=== PATIENT | female | born 1990 | race Caucasian/White ===

== ENCOUNTER → 2018-01-13 13:48 | Outpatient (CLI) | payer OTHER, SELFPAY ==
[2018-01-13 14:45] LABS: Add Manual Diff / Slide Review NO; Basophils Percent Auto 0.5 % (0-2); Eosinophils Percent Auto 1.5 % (2-4); Hematocrit 35.8 % (36-46); Hemoglobin 12.2 g/dL (12.0-16.0); Lymphocytes Percent Auto 21.2 % (25-40); Mean Corpuscular HGB Conc 34.2 % (30-36); Mean Corpuscular Hemoglobin 31.6 PG (26-34); Mean Corpuscular Volume 92.3 fL (80-100); Monocytes Percent Auto 7.4 % (3-14); Neutrophils Absolute Auto 7400 /uL (3000-5900); Neutrophils Percent Auto 69.4 % (50-75); Platelet Count 374 X10^3/uL (150-400); Red Blood Cell Count 3.87 X10^6/uL (4.0-5.2); Red Cell Distribution Width 12.7 % (11.6-14.8); White Blood Cell Count 10.7 X10^3/uL (4.5-11.0)
[2018-01-13 18:56] LABS: Hepatitis B Surface Antigen NEGATIVE s/c (NEGATIVE); Rubella Antibody IgG 45.6 IU/mL (>15)
[2018-01-13 19:05] LABS: Appearance Urine UA SL CLOUDY; Bilirubin Urine UA NEGATIVE (NEGATIVE); Color Urine UA YELLOW; Glucose Urine UA NEGATIVE (Normal); Ketones Urine UA TRACE (NEGATIVE); Leukocyte Esterase Urine UA NEGATIVE (NEGATIVE); Nitrite Urine UA NEGATIVE (Negative); Occult Blood Urine UA NEGATIVE (Negative); Protein Urine UA NEGATIVE (Negative); Urobilinogen Urine UA 0.2 E.U./dL (0.2)
[2018-01-13 19:11] LABS: HIV 1 and 2 Antibody NEGATIVE (NEGATIVE); Hep C Virus Ab w/Reflex Quant NEGATIVE s/c (NEGATIVE)
[2018-01-15 14:00] LABS: HSV 2 IGG AB < 0.90 index (< 0.90)
[2018-01-15 15:41] LABS: RPR Screen Nonreactive (Nonreactive)
== END ==
PROVIDERS: Visit Provider Family Medicine
DX: Z34.01 Encounter for supervision of normal first pregnancy, first trimester (principal); Z3A.01 Less than 8 weeks gestation of pregnancy
CPT/HCPCS: 36415; 80055; 81003; 86695; 86696; 86703; 86787; 86803; 86850; 86900; 86901; 87086

== ENCOUNTER → 2018-02-10 09:14 | Outpatient (CLI) | payer OTHER, SELFPAY ==
[2018-02-16 12:46] LABS: AFP, Serum 20.9 ng/mL; Calc Gestational Age 16.6; Cigarette Smoker N; Donated Egg N; Donor Egg Age NOT GIVEN; Estriol, Free 0.81 ng/mL; Inhibin A, Dimeric 404 pg/mL; Maternal Ethnicity CAUCASIAN; Maternal Weight 166 lbs; Number of Fetuses 1; Previous Pregnancy Down Syndro N; hCG, MoM 0.83
== END ==
PROVIDERS: Visit Provider Family Medicine
DX: Z3A.16 16 weeks gestation of pregnancy (principal)
CPT/HCPCS: 36415; 82105; 82677; 84702; 86336

== ENCOUNTER → 2018-03-13 08:10 | Outpatient (CLI) | payer OTHER, SELFPAY ==
--- NOTE | 2018-03-13 08:13 | DI.US.S_ITS ---
PROCEDURE: US OB >= 14 WEEKS FETUS INDICATIONS: anatomy scan OUTSIDE/PRIOR DATING DATA: Last menstrual period (LMP): Unknown.. LMP-based estimated date of delivery (ELIAS): N./A.. First dating scan (date and location): 01/13/18 Estimated date of delivery (ELIAS) from first dating scan: 07/25/18. TECHNIQUE: Real-time scanning was performed of the fetus, with image documentation and biometric measurements. Endovaginal scanning: No COMPARISON: [employer] [facility], , OB <= 14 WEEKS FETUS, 01/13/2018, 13:20. FINDINGS: General: A single living intrauterine gestation is present. Presentation: Vertex. Placenta: Placental position is anterior, without previa. Amniotic fluid index: 15.7 cm, normal range is 5-24 cm. heart rate: 145 beats per minute. Maternal cervical canal: 4.5 cm long. Normal lower limit is 2.5 cm. biometrics: Biparietal diameter: 21 weeks 0 days Head circumference: 20 weeks 4 days Abdominal circumference: 21 weeks 1 day Femur length: 20 weeks 6 days Estimated gestational age from initial scan: 20 weeks 6 days Composite gestational age from present scan: 20 weeks 6 days Estimated weight and percentile: 39 g, 50th percentile Measurement variability for biometric dating: +/- 7 days from 14 weeks to 15 weeks 6 days gestation, +/- 10 days from 16 weeks to 21 weeks 6 days gestation, +/- 2 weeks from 22 weeks to 27 weeks 6 days gestation, +/- 3 weeks for 28 weeks gestation or later. weight reference: 4500 g or EFW >90/95% is considered macrosomia or large for gestational age. EFW <10% is small for gestational age. EFW 5% or less is considered intra-uterine growth restriction. Anatomic survey: Neuro: Ventricles are non-dilated at less than 10 mm. Cisterna magna is normal at 3-11 mm. Cerebellum is normal in size and morphology. Nuchal skin fold: Normal at less than 6 mm between 14-21 weeks gestational age. Face: Nose and lips, facial profile are normal. Spine: No evidence for spina bifida. Heart: 4-chambered heart is present, with normal ventricular outflow tracts. Diaphragm: Diaphragm is intact. Stomach: Left-sided stomach is present. Kidneys: No hydronephrosis. Normal is less than 5 mm in 2nd trimester, less than 7 mm in 3rd trimester. Cord: 3-vessel cord has orthotopic insertion. Bladder: Normal in size. Extremities: All 4 extremities identified. IMPRESSION: 1. Single living IUP redemonstrated and interval growth is normal. 2. Normal anatomic survey. Dictated by: Murali ROBBINS Interpreted: Nasim Chavez MD on 03/13/2018 at 10:36 Approved by: Nasim Chavez M.D. on 03/13/2018 at 11:08
== END ==
PROVIDERS: PCP Family Medicine; Visit Provider Family Medicine
DX: Z36.89 Encounter for other specified antenatal screening (principal); Z3A.20 20 weeks gestation of pregnancy
CPT/HCPCS: 76811

== ENCOUNTER → 2018-05-08 12:25 | Outpatient (CLI) | payer OTHER, SELFPAY ==
[2018-05-08 12:40] LABS: Add Manual Diff / Slide Review NO; Basophils Absolute Auto 0 /uL (0-100); Basophils Percent Auto 0.4 % (0-2); Eosinophils Absolute Auto 200 /uL (0-450); Eosinophils Percent Auto 1.7 % (2-4); Hematocrit 33.7 % (36-46); Hemoglobin 11.9 g/dL (12.0-16.0); Lymphocytes Absolute Auto 2000 /uL (1100-4500); Lymphocytes Percent Auto 17.3 % (25-40); Mean Corpuscular HGB Conc 35.2 % (30-36); Mean Corpuscular Hemoglobin 32.9 PG (26-34); Mean Corpuscular Volume 93.4 fL (80-100); Monocytes Absolute Auto 1000 /uL (0-900); Monocytes Percent Auto 8.1 % (3-14); Neutrophils Absolute Auto 8600 /uL (1500-7000); Neutrophils Percent Auto 72.5 % (50-75); Platelet Count 358 X10^3/uL (150-400); Red Blood Cell Count 3.61 X10^6/uL (4.0-5.2); Red Cell Distribution Width 12.7 % (11.6-14.8); White Blood Cell Count 11.8 X10^3/uL (4.5-11.0)
== END ==
PROVIDERS: PCP Family Medicine; Visit Provider Family Medicine
DX: Z34.92 Encounter for supervision of normal pregnancy, unspecified, second trimester (principal)
CPT/HCPCS: 36415; 85025; 86850

== ENCOUNTER → 2018-06-26 09:35 | Outpatient (CLI) | payer OTHER, SELFPAY ==
[2018-06-27 15:15] LABS: Strep Grp B PCR NEG for Grp B Strep
== END ==
PROVIDERS: PCP Family Medicine; Visit Provider Family Medicine
DX: Z34.03 Encounter for supervision of normal first pregnancy, third trimester (principal)
CPT/HCPCS: 87653

== ENCOUNTER 2018-07-17 08:50 | Outpatient (CLI) | payer OTHER, SELFPAY ==
--- NOTE | 2018-07-17 09:49 | P.TNLD_ITS ---
Visit Information Visit Information Date of evaluation: 07/17/18 Primary OB Provider: Claudia William Reason for Evaluation: Yes non-stress test non-stress test reason: other (low HR in clinic) [facility] Social History Smoking Status: Current some day smoker Social History Smoking Status: Current some day smoker Evaluation Evaluation Baseline heart rate: 120 Variability: Moderate (11-25) monitor accelerations: Present Category of Tracing: I Diagnosis, Plan/Disposition Final Diagnosis (1) heart rate reactive: Current Visit: Yes Status: Acute Plan/Disposition Plan: Reactive NST with HR normalizing to the 120s OB Disposition: home
== END 2018-07-17 09:51 | disposition home or self-care (01) ==
LOC: LABOR 08:59 → OB 07-20 15:14
PROVIDERS: PCP Family Medicine; Visit Provider Family Medicine
DX: O99.89 Other specified diseases and conditions complicating pregnancy, childbirth and the puerperium (principal); R00.1 Bradycardia, unspecified; Z3A.38 38 weeks gestation of pregnancy
CPT/HCPCS: 59025; G0378; G0379

== ENCOUNTER 2018-07-29 17:40 | Observation (INO) | payer OTHER, SELFPAY ==
[2018-07-29] MEDS: miSOPROStol 25 MCG TABLET VAG (22:38)
--- NOTE | 2018-07-30 09:13 | P.TNLD_ITS ---
Visit Information Visit Information Date of evaluation: 07/30/18 Primary OB Provider: Claudia William Comments/Additional reasons for admission: Here for IOL, however no progress and needs to be sent home due to staffing. [facility] Social History Smoking Status: Current some day smoker Social History Smoking Status: Current some day smoker Evaluation Evaluation Baseline heart rate: 130 Variability: Moderate (11-25) monitor accelerations: Present monitor decelerations: Absent Uterine Contraction Intensity: Mild Category of Tracing: I Cervical dilation (cm): 1 Cervical effacement (%): 50 station: -4 Diagnosis, Plan/Disposition Final Diagnosis (1) Post-dates : Current Visit: No Status: Acute Plan/Disposition Plan: Pt here for IOL. No significant cervical change overnight after cytotec x1. Will need to return this evening for continued IOL due to staffing issues. Pt stable to d/c home. OB Disposition: home
== END 2018-07-30 09:09 | disposition home or self-care (01) ==
PROVIDERS: Admitting Provider Family Medicine; PCP Family Medicine; Visit Provider Family Medicine
DX: O61.9 Failed induction of labor, unspecified (principal); O48.0 Post-term pregnancy; Z3A.40 40 weeks gestation of pregnancy
CPT/HCPCS: 59025; 59050; 59200; G0378; G0379

== ENCOUNTER 2018-07-30 18:49 | Observation (INO) | payer OTHER, SELFPAY ==
[2018-07-30] MEDS: miSOPROStol 25 MCG TABLET VAG (20:00)
[2018-07-31 05:24] VITALS: BP 138/61
--- NOTE | 2018-07-31 08:38 | PM.OBHP.1 ---
OB HPI Date/Time Date of admission: 07/30/18 Date Patient Seen: 07/31/18 Time Patient Seen: 08:00 History of Present Condition Chief complaint: EVAL OF LABOR : 1 Para: 0 Estimated Date of Delivery: 07/24/18 Estimated Gestational Age (weeks): 41w0d Narrative: Vinny Hyman is a 27 year old at 41w0d who presented for IOL for post-dates. She denies any vaginal bleeding, LOF, or regular contractions. She has been feeling baby move regularly. Indications Indication for induction OB: post dates History of Present care: good care, initiated at week # (12) and pounds weight gain (32) Dating criteria: based on 1st trimester US only Ultrasounds: normal mid trimester US Obstetrical complications: none Medical complications: none Preadmission Labs Blood type: AB (-) negative -: Antibody screen: negative, GBS status: negative, HBsAG: negative, HIV: negative, HSV 1: positive, HSV 2: negative and RPR/VDLR: negative -: Rubella: immune and Varicella: immune HCT: 33.7 Quad screen: Normal Evaluation Evaluation Baseline heart rate: 120 Variability: Moderate (11-25) monitor accelerations: Present monitor decelerations: Absent Contraction Frequency (minutes): 4 Uterine Contraction Intensity: Mild Category of Tracing: I Cervical dilation (cm): 1 Cervical effacement (%): 50 station: -2 [facility] Social History Smoking Status: Current every day smoker Social History Smoking Status: Current every day smoker Meds Home Medications Medication Instructions Recorded Confirmed Type No Known Home Medications 07/29/18 07/31/18 History Allergies Allergy/AdvReac Type Severity Reaction Status Date / Time No Known Drug Allergies Allergy Verified 07/31/18 00:54 Exam Vital Signs (past 8 hours): - 07/31/18 05:24 Blood Pressure 138/61 Narrative Exam Narrative: Gen: NAD, laying comfortably in bed, appears well CV: RRR, no murmurs Resp: clear to auscultation bilaterally Abd: soft, nontender, gravid Ext: trace edema Assessment and Plan Assessment and Plan Assessment and Plan narrative: 27yo at 41w0d who presented for IOL for post-dates. IOL initially started 07/29 with cytotec x1, not continued due to staffing issues. Uncomplicated . Rh negative, GBS negative. - Expectant management, anticipate - S/P single dose of cytotec last night, not continued due to frequency of contractions although not being felt. Cervix more anterior this morning, but otherwise no significant change. Will use Cervidil for ongoing IOL. - GBS negative, no antibiotics indicated - Rh negative, cord blood after - FHT reassuring - Epidural for pain control if pt desires
[2018-07-31] MEDS: DINOPROSTONE VAG (CERVIDIL) 10 MG VAG (08:59)
[2018-07-31] MEDS: LACTATED RINGERS 1,000 ML 100 ML IV (09:00)
[2018-07-31 09:27] LABS: Add Manual Diff / Slide Review NO; Basophils Absolute Auto 100 /uL (0-100); Basophils Percent Auto 0.6 % (0-2); Eosinophils Absolute Auto 100 /uL (0-450); Eosinophils Percent Auto 0.9 % (2-4); Hematocrit 35.2 % (36-46); Hemoglobin 12.1 g/dL (12.0-16.0); Lymphocytes Absolute Auto 1900 /uL (1100-4500); Lymphocytes Percent Auto 16.7 % (25-40); Mean Corpuscular HGB Conc 34.5 % (30-36); Mean Corpuscular Hemoglobin 32.4 PG (26-34); Mean Corpuscular Volume 93.9 fL (80-100); Monocytes Absolute Auto 900 /uL (0-900); Monocytes Percent Auto 7.7 % (3-14); Neutrophils Absolute Auto 8200 /uL (1500-7000); Neutrophils Percent Auto 74.1 % (50-75); Platelet Count 298 X10^3/uL (150-400); Red Blood Cell Count 3.75 X10^6/uL (4.0-5.2); White Blood Cell Count 11.1 X10^3/uL (4.5-11.0)
== END 2018-07-31 21:51 | disposition home or self-care (01) ==
PROVIDERS: Admitting Provider Family Medicine; PCP Family Medicine; Visit Provider Family Medicine
DX: O61.9 Failed induction of labor, unspecified (principal); Z3A.40 40 weeks gestation of pregnancy
CPT/HCPCS: 36415; 59025; 59050; 59200; 85025; 86850; 86900; 86901; 96360; G0378; G0379

== ENCOUNTER 2018-08-01 20:38 | Inpatient (IN) | payer OTHER, SELFPAY ==
[2018-08-01 20:58] VITALS: BP 126/88
--- NOTE | 2018-08-01 21:05 | PM.OBHP.1 ---
OB HPI Date/Time Date of admission: 08/01/18 Date Patient Seen: 08/01/18 Time Patient Seen: 20:30 History of Present Condition Chief complaint: eval of labor : 1 Para: 0 Estimated Date of Delivery: 07/24/18 Estimated Gestational Age (weeks): 41w1d Narrative: Vinny Hyman is a 27 year old at 41w1d who presented for IOL for post-dates. Previously had received cytotec x1, then cytotec x1 followed by cervidil. On both occasions had to be discharged home due to staffing issues. The pt denies significant vaginal bleeding, LOF. She feels mild intermittent contractions. Feeling baby move regularly. Indications Indication for induction OB: post dates History of Present care: good care, initiated at week # (12) and pounds weight gain (32) Dating criteria: based on 1st trimester US only Ultrasounds: normal mid trimester US Obstetrical complications: none Medical complications: none Preadmission Labs Blood type: AB (-) negative -: Antibody screen: negative, GBS status: negative, HBsAG: negative, HIV: negative, HSV 1: positive, HSV 2: negative and RPR/VDLR: negative -: Rubella: immune and Varicella: immune HCT: 33.7 Quad screen: Normal Evaluation Evaluation Baseline heart rate: 150 Variability: Moderate (11-25) monitor accelerations: Present monitor decelerations: Absent Category of Tracing: I Cervical dilation (cm): 1 Cervical effacement (%): 50 station: -2 [facility] Social History Smoking Status: Former smoker Social History Smoking Status: Former smoker Meds Home Medications Medication Instructions Recorded Confirmed Type No Known Home Medications 07/29/18 07/31/18 History Allergies Allergy/AdvReac Type Severity Reaction Status Date / Time No Known Drug Allergies Allergy Verified 07/31/18 00:54 Exam Narrative Exam Narrative: Gen: NAD, laying comfortably in bed, appears well CV: RRR, no murmurs Resp: clear to auscultation bilaterally Abd: soft, nontender, gravid Ext: trace edema Assessment and Plan Assessment and Plan Assessment and Plan narrative: 27yo at 41w1d who presented for IOL for post-dates. IOL initially started 5/ with cytotec x1, then 5/2 with cytotec x1 followed by cervidil. No significant cervical change. Discharged home due to staffing issues. Uncomplicated . Rh negative, GBS negative. - Expectant management, anticipate - Rodrigez catheter placed for cervical dilation after informed consent. Inflated with 30cc of normal saline with gentle traction applied and rodrigez taped to leg. Will plan to remove after 12 hours or when rodrigez falls out. - GBS negative, no antibiotics indicated - Rh negative, cord blood after - FHT reassuring - Epidural for pain control if pt desires
[2018-08-02] MEDS: LACTATED RINGERS 1,000 ML 100 ML IV ×2 (06:17→16:45)
[2018-08-02] MEDS: OXYTOCIN PREMIX 30 UNIT/500 ML PLAST..BAG IV (06:17)
--- NOTE | 2018-08-02 08:37 | PM.OBPNLAB ---
Date/Time Date Patient Seen: 08/02/18 Time Patient Seen: 08:20 Pain Control Pain control: tolerating well Pelvic Exam Dilation (cm): 3 Effacement (%): 50 station: -2 Amniotic membrane status: Intact Contractions Contractions on admission: irregular Monitor mode: External Pitocin rate (mU/min): 6 Contraction pattern: Irregular Contraction phase: Resting Contraction intensity: Mild Status status: Category l Heart Rate Baseline: 120 Monitor Accelerations: Present Monitor Decelerations: Absent Monitor Variability: Moderate Assessment and Plan Assessment: induction ongoing Comments: 27yo at 41w1d who presented for IOL for post-dates. IOL initially started 5/ with cytotec x1, then 5/2 with cytotec x1 followed by cervidil. No significant cervical change. Discharged home due to staffing issues. Mckeon catheter overnight that fell out at approximately 2am. Cervix now 3cm, on pitocin. Uncomplicated . Rh negative, GBS negative. - Expectant management, anticipate - Continue pitocin, titrate as tolerated. Plan for AROM when head better applied to cervix. - GBS negative, no antibiotics indicated - Rh negative, cord blood after - FHT reassuring - Epidural for pain control if pt desires
--- NOTE | 2018-08-02 11:40 | PM.OBPNLAB ---
Date/Time Date Patient Seen: 08/02/18 Time Patient Seen: 11:30 Pain Control Pain control: tolerating well Pelvic Exam Dilation (cm): 4 Effacement (%): 60 station: -2 Amniotic membrane status: Ruptured Comments: After informed consent, AROM performed with production of clear fluid. Contractions Monitor mode: External Pitocin rate (mU/min): 12 Contraction pattern: Irregular Contraction phase: Resting Contraction intensity: Mild Status status: Category l Heart Rate Baseline: 150 Monitor Accelerations: Present Monitor Decelerations: Absent Monitor Variability: Moderate Assessment and Plan Assessment: induction ongoing Comments: 27yo at 41w1d who presented for IOL for post-dates. IOL initially started 5/ with cytotec x1, then 5/2 with cytotec x1 followed by cervidil. No significant cervical change. Discharged home due to staffing issues. Mckeon catheter overnight that fell out at approximately 2am. Cervix now 4cm, on pitocin. AROM performed with production of clear fluid. Uncomplicated . Rh negative, GBS negative. - Expectant management, anticipate - Continue pitocin, titrate as tolerated. Limit cervical exams due to AROM. - GBS negative, no antibiotics indicated - Rh negative, cord blood after - FHT reassuring - Epidural for pain control if pt desires
--- NOTE | 2018-08-02 19:48 | PM.OBPNLAB ---
Date/Time Date Patient Seen: 08/02/18 Time Patient Seen: 19:15 Pain Control Pain control: tolerating well Pelvic Exam Dilation (cm): 5 Effacement (%): 70 station: -2 Amniotic membrane status: Ruptured Contractions Monitor mode: External Pitocin rate (mU/min): 30 Contraction frequency (min): 4 Contraction pattern: Irregular Contraction phase: Resting Contraction intensity: Mild Intrauterine tone measurement: 100 Status status: Category l Heart Rate Baseline: 120 Monitor Accelerations: Present Monitor Decelerations: Absent Monitor Variability: Moderate Assessment and Plan Assessment: induction ongoing Comments: 27yo at 41w1d who presented for IOL for post-dates. IOL initially started 07/29 with cytotec x1, then 5/2 with cytotec x1 followed by cervidil. No significant cervical change. Discharged home due to staffing issues. Mckeon catheter overnight that fell out at approximately 2am. On pitocin. AROM performed at approximately 11:30am with clear fluid present. Minimal cervical change since that time, with pitocin titrated up to maximum dosing. Uncomplicated . Rh negative, GBS negative. - Expectant management, anticipate - Will turn off pitocin for 1 hour to allow receptors to reset. Start back at 15 mU. - IUPC placed so can monitor contraction strength once pitocin restarted - If with adequate contractions and no cervical change within 4 hours, or inadequate contractions and no change in 6 hours will proceed with - GBS negative, no antibiotics indicated. No evidence of chorio - Rh negative, cord blood after - FHT reassuring - Epidural for pain control if pt desires
[2018-08-03] VITALS (7 sets, daily range): BP systolic 112–137; BP diastolic 53–95; PULSE 85–105; RESP 13–19; TEMP 36.6–37.1; O2SAT 99
[2018-08-03] MEDS: LACTATED RINGERS 1,000 ML 999 ML IV (00:15)
[2018-08-03] MEDS: LACTATED RINGERS 1,000 ML 100 ML IV (04:12)
--- NOTE | 2018-08-03 06:10 | PM.OBPNLAB ---
Date/Time Date Patient Seen: 08/03/18 Time Patient Seen: 06:00 Pain Control Pain control: epidural Pelvic Exam Dilation (cm): 5 Effacement (%): 90 station: -2 Amniotic membrane status: Ruptured Contractions Monitor mode: External Pitocin rate (mU/min): 30 Contraction frequency (min): 2 Contraction duration (min): 1 Contraction pattern: Irregular Contraction phase: Resting Contraction intensity: Mild Intrauterine tone measurement: 200 Status status: Category l Heart Rate Baseline: 130 Monitor Accelerations: Present Monitor Decelerations: Absent Monitor Variability: Moderate Assessment and Plan Assessment: induction ongoing Comments: 27yo at 41w3d who presented for IOL for post-dates. IOL initially started 5/1 with cytotec x1, then 5/2 with cytotec x1 followed by cervidil. No significant cervical change. Discharged home due to staffing issues. Mckeon catheter that fell out at approximately 2am. On pitocin. AROM performed at approximately 11:30am yesterday with clear fluid present. Pitocin titrated up to maximum dosing. Adequate contraction pattern now for > 4 hours without significant cervical change and no significant descent. Due to this, will proceed with primary . The risks vs benefits of surgery were discussed with the pt in detail. Risks include but not limited to bleeding/hemorrhage, infection, damage to other organs such as the bowel and bladder, and injury to the fetus. The pt did consent for blood transfusion if medically indicated. Consent was signed and placed in the chart. The pt will receive 2g of Ancef prior to surgery.
--- NOTE | 2018-08-03 06:22 | PM.PREOP ---
Pre-operative Note Interval Note History & Physical reviewed/Exam performed by Physician: Yes Changes to H&P: No
[2018-08-03 07:19] LABS: Add Manual Diff / Slide Review NO; Basophils Absolute Auto 100 /uL (0-100); Eosinophils Absolute Auto 0 /uL (0-450); Eosinophils Percent Auto 0.2 % (2-4); Hematocrit 31.5 % (36-46); Lymphocytes Absolute Auto 1400 /uL (1100-4500); Lymphocytes Percent Auto 10.7 % (25-40); Mean Corpuscular HGB Conc 34.9 % (30-36); Mean Corpuscular Hemoglobin 32.6 PG (26-34); Mean Corpuscular Volume 93.4 fL (80-100); Monocytes Absolute Auto 900 /uL (0-900); Monocytes Percent Auto 6.5 % (3-14); Neutrophils Absolute Auto 10700 /uL (1500-7000); Neutrophils Percent Auto 81.6 % (50-75); Platelet Count 284 X10^3/uL (150-400); Red Blood Cell Count 3.37 X10^6/uL (4.0-5.2); Red Cell Distribution Width 13.3 % (11.6-14.8); White Blood Cell Count 13.1 X10^3/uL (4.5-11.0)
[2018-08-03] MEDS: CEFAZOLIN 2 GM/100 ML FROZ.PIGGY IV (07:45)
--- NOTE | 2018-08-03 08:02 | SUR.OPER ---
Supine on Padded OR bed, head on pillow, safety belt at thigh, arms secured on padded arm boards at <90 degrees abduction. Bump under right buttock. Legs uncrossed with pillow under knees, gel pad to heels, tape over blanket to lower legs.
[2018-08-03] MEDS: CARBOPROST 250 MCG/ML AMPUL IM (08:18)
--- NOTE | 2018-08-03 09:01 | P.OP_ITS ---
Operative Date/Time/Diagnoses Date of procedure: 08/03/18 Time of procedure: 08:00 Pre-op diagnosis: 41w3d gestation Rh negative Failure to dilate Post-op diagnosis: same Procedure & Clinicians Procedure: Primary Same procedure as scheduled: Yes Indications: Failed induction of labor with failure to dilate Surgeon: Claudia William Limousine Driver: Katlyn Ibarra Click Yes if Unassisted: No Anesthesia Type: Epidural Operative Notes Findings: Normal uterus, ovaries, and tubes Closure Type: primary Specimen(s): none sent Applied: catheter Estimated Blood Loss (mL): 500 Blood products transfused: none Procedure in detail: OPERATIVE COURSE: The patient was taken to the operating room where epidural was bolused was placed. She was then prepared and draped in the normal sterile fashion in the dorsal supine position with a leftward tilt. Anesthesia was tested and found to be adequate. A Pfannensteil skin incision was then made with the scalpel and carried through to the underlying layer of fascia with the scalpel. The fascia was incised in the midline and the incision extended laterally with the Reis scissors. The superior aspect of the fascial incision was then grasped with Gomez clamps, elevated, and the underlying rectus muscles dissected off bluntly and sharply where needed. Attention was then turned to the inferior aspect of the incision which, in a similar fashion, was grasped, tented up with Gomez clamps, and the rectus muscle dissected off bluntly and sharply with Reis scissors. The rectus muscles were then in the midline, and the peritoneum was identified and entered bluntly. The peritoneal incision was then extended with good visualization of the bladder. The bladder blade was then inserted and the vesicouterine peritoneum identified, grasped with pick-ups and entered sharply with the Metzenbaum scissors. The incision was then extended laterally and the bladder flap created digitally. The bladder blade was then reinserted and the lower uterine segment incised in a transverse fashion with the scalpel. The uterine incision was then extended superolaterally by pulling superolaterally on both sides. The bladder blade was removed the infant's head was flexed out of ROT position and delivered atraumatically. The nose and mouth were suctioned with bulb suction and the cord was clamped and cut. The infant was handed off to the waiting nursing staff. Cord blood was collected for Rh status. The placenta was then delivered with gentle cord traction. The uterine incision was repaired with O Vicryl in a running, locked fashion. A second layer of the same suture was used to obtain excellent hemostasis, requiring one addition [id number] on the right aspect of the hysterotomy. The gutters were cleared of all clots. Hysterotomy was investigated and found to be hemostatic. The bladder flap was repaired with 2-O Chromic. Ovaries and tubes were noted to have a normal appearance. The peritoneum was closed with 3- O Vicryl. The fascia was reapproximated with O Vicryl in a running fashion. The subcutaneous tissue was reapproximated with 3-O Vicryl. The skin was closed with 4-O Vicryl. ROM APPEARANCE: Clear BABY A DELIVERY TIME: 8:09 BABY A OUTCOME: Viable BABY A SEX: Female BABY A WEIGHT: [id number] BABY A NUCHAL CORD: No BABY A # CORD VESSELS: 3 BABY A 1 MINUTE: 9 BABY A 5 MINUTES: 9 PLACENTA DELIVERY TIME: 8:11 PLACENTAL DELIVERY TYPE: Spontaneous PLACENTA APPEARANCE: Intact SPONGE AND NEEDLE COUNTS: Correct x3. DRESSING: Aquacel ANTICOAGULATION: SCDs applied prior to Surgery: Yes Preop antibiotics given (see MAR). The patient was taken to recovery room having tolerated procedure well. Complications: none Condition: stable Disposition: PACU Plan for aftercare: Normal post care support
--- NOTE | 2018-08-03 10:13 | SUR.OPER ---
FHR 135 TOB at 08:09 alive girl Cord blood and placenta are given to OB nurse
[2018-08-03] MEDS: KETOROLAC 30 MG/ML VIAL IV ×2 (14:00→21:17)
[2018-08-03] MEDS: LANOLIN OINT 7 GM 1 APPLIC TOP (19:37)
[2018-08-03] MEDS: OXYCODONE/ACETAMINOPHEN 5/325 TABLET 2 TAB PO (19:41)
[2018-08-04 03:41] VITALS: TEMP 36.8
[2018-08-04] MEDS: KETOROLAC 30 MG/ML VIAL IV (03:41)
--- NOTE | 2018-08-04 08:18 | PM.OBPN.1 ---
Subjective - OB Date Patient Seen: 08/04/18 Time Patient Seen: 07:15 Interval history: The patient reports that she is overall doing well this morning. Her pain is adequately controlled. She has been ambulated in the room without difficulty. She has voided and passed flatus. Her lochia is decreasing appropriately. She denies any specific concerns today. Exam Vital Signs (past 8 hours): - 08/04/18 03:41 Temperature 98.3 F Oxygen Delivery Method Room Air Narrative Exam Narrative: General: No acute distress, standing comfortably in room, appears well CV: Regular rate and rhythm, no murmurs Respiratory: Clear to auscultation bilaterally Abdomen: Fundus firm below the umbilicus, dressing C/D/I with very small area of dried blood on the right aspect of the bandage, appropriately tender, nondistended, normoactive bowel sounds Extremities: Trace edema Objective Labs Result Diagrams: 08/03/18 07:05 Assessment & Plan (1) S/P : Status: Resolved Current Visit: Yes Plan Comments: 27-year-old postop day 1. Status post primary for failure to dilate. Patient doing well thus far. No complications. - normal care - RhoGAM not indicated due to baby was Rh negative status\ - breast feeding support Time Spent With Patient Total time spent is greater than 50% in coordination of care (as documented) at patient's floor/unit and/or counseling patient: 15-24 minutes
[2018-08-04] MEDS: DOCUSATE 250 MG CAPSULE PO (09:26)
[2018-08-04] MEDS: PRENATAL VIT,CALC/IRON/FOLIC 1 TABLET 1 TAB PO (09:26)
[2018-08-04] MEDS: ACETAMINOPHEN 325 MG TABLET 650 MG PO ×2 (09:26→15:31)
[2018-08-04] MEDS: IBUPROFEN 600 MG TABLET PO ×2 (12:40→12:44)
[2018-08-04 15:31] VITALS: TEMP 37.1
[2018-08-05] MEDS: IBUPROFEN 600 MG TABLET PO ×2 (00:22→08:24)
[2018-08-05] MEDS: ACETAMINOPHEN 325 MG TABLET 650 MG PO ×2 (04:27→10:57)
[2018-08-05] MEDS: DOCUSATE 250 MG CAPSULE PO (08:24)
[2018-08-05] MEDS: PRENATAL VIT,CALC/IRON/FOLIC 1 TABLET 1 TAB PO (08:25)
[2018-08-05 11:16] VITALS: BP 125/79; PULSE 73; RESP 16; TEMP 36.8
--- NOTE | 2018-08-05 11:25 | P.DS_ITS ---
Discharge Providers Date of admission: 08/01/18 20:38 Discharge Date: 08/05/18 Primary care physician: Ananda Viramontes DO Consults: 08/03/18 11:19 Consult to Sales Representative Cash Registers Routine Comment: Discharge provider: Claudia William MD Summary Date Patient Seen: 08/05/18 Time Patient Seen: 07:45 Procedures: Primary Hospital Course: The patient presented for induction of labor for post dates. She received Cytotec and Cervidil with no significant cervical change. She then had a Mckeon bulb in place and dilated to approximately 3 cm. Pitocin was initiated. She was titrated up to maximum dosing of 30 milliunits. The patient dilated to 5 cm, however did not progress beyond this point. IUPC was in place showing adequate contraction pattern for longer than 4 hours. Due to failure to dilate, the patient underwent primary . There were no complications with her surgery. The patient delivered an 8 lb 10 oz baby girl with Apgars of 9 and 9 at 9:08AM on 08/03/2018. , there are no complications. At the time of discharge she was voiding, ambulating, and passing flatus without difficulty. Her lochia was decreasing appropriately. Her pain was adequately controlled. She was breast-feeding with good latch. She will follow up in 1 week for wound check and then for 6 week check. She is undecided regarding control. Peripartum Data Infant Delivery Method: Section Procedures: Primary complications: none 1: Gender: Female Disposition of : home Discharge Diagnosis (1) S/P : Status: Resolved (2) Failure of cervical dilation: Status: Acute Status at Discharge Cognitive/behavioral status at discharge: oriented Functional status at discharge: independent ambulation Overall status at discharge: patient is progressing back to baseline Time Spent with Patient Total time spent providing and/or coordinating discharge services: Greater than 30 minutes Objective Labs Result Diagrams: 08/03/18 07:05 Exam Vital Signs (past 8 hours): - 08/05/18 11:16 Temperature 98.2 F Pulse Rate 73 Respiratory Rate 16 Blood Pressure 125/79 Oxygen Delivery Method Room Air Narrative Exam Narrative: General: No acute distress, standing comfortably in room, appears well CV: Regular rate and rhythm, no murmurs Respiratory: Clear to auscultation bilaterally Abdomen: Soft, appropriately tender, nondistended, fundus firm below the umbilicus, dressings C/D/I with minimal amount of dried blood present Extremities: Trace edema Discharge Plan Discharge Plan Patient Disposition: Home Discharge Med Rec/Prescriptions Prescriptions: New acetaminophen 325 mg Tablet 650 mg PO Q6HR PRN (Reason: As Needed For Fever/Mild Pain) Qty: 30 RF: 0 oxycodone-acetaminophen 5-325 mg Tablet 2 tab PO Q4HR PRN (Reason: Pain, Severe (7-10)) Qty: 40 RF: 0 ibuprofen 600 mg Tablet 600 mg PO Q6HR PRN (Reason: As Needed For Fever/Mild Pain) Qty: 30 RF: 0 docusate sodium 250 mg Capsule 250 mg PO DAILY Qty: 30 RF: 0 Prenatabs Rx 29 mg iron- 1 mg Tablet 1 tab PO DAILY Qty: 30 RF: 0 No Action No Known Home Medications RF: 0 Follow up/Referrals: Ananda Viramontes DO [Primary Care Provider] - None () Claudia William MD [Physician] - 1 Week (August 10 at 9:10am with for incision check.) Provider Discharge Instructions Activity: No driving until off narcotics and able to rotate easily in car, usually around 2 weeks. No intercourse for 6 weeks. No heavy lifting. Skin/Wound/Dressing Care Report to your healthcare provider any signs of infection, such as:: chills, fever, increased pain, unusual drainage and unusual redness Dressing: Keep dressing on until seen in clinic next week. Okay to shower with it on. Visit Report/Discharge Packet Instructions: DI for Discharge Data Primary Care Provider: Ananda Viramontes Attending Provider: Claudia William Admit Date/Time: 08/01/18 20:38 Discharges patient from system. Discharge Date/Time: 08/05/18 13:10
== END 2018-08-05 13:10 | disposition home or self-care (01) | DRG 788 ==
PROVIDERS: Admitting Provider Family Medicine; PCP Family Medicine; Visit Provider Family Medicine
PROC: 10D00Z1 Extraction of Products of Conception, Low, Open Approach (ICD-10-PCS; CPT 59514; principal; 2018-08-03 07:10)
DX: O34.219 Maternal care for unspecified type scar from previous cesarean delivery (principal); Z98.891 History of uterine scar from previous surgery; O48.0 Post-term pregnancy; Z3A.41 41 weeks gestation of pregnancy; Z37.0 Single live birth; O61.0 Failed medical induction of labor
CPT/HCPCS: 01967; 01968; 36415; 59050; 59510; 59514; 85025; G0378; G0379; J0690; J1885; J2274; J2405; J2590; J2765; J3010